=== PATIENT | female | born 2000 | race Hispanic/Latino ===

== ENCOUNTER 2019-12-28 23:03 | Emergency (ER) | payer SELFPAY ==
[2019-12-28 23:40] LABS: #Basophils 0.1 thou/uL (0.0-0.2); #Eosinphils 0.1 thou/uL (0.0-0.7); #Lymphocytes 2.3 thou/uL (1.20-3.40); #Monocytes 0.4 thou/uL (0.11-0.59); #Neutrophils 3.8 thou/uL (1.40-6.50); %Basophils 0.9 % (0.0-1.0); %Eosinophils 1.6 % (0.0-10.0); %Lymphocytes 34.4 % (21.0-51.0); %Monocytes 6.6 % (0.0-10.0); %Neutrophils 56.6 % (42.0-75.0); Hemoglobin 13.5 g/dL (12.0-16.0); Mean Corpuscular HGB CONC 36.3 g/dL (32.0-36.0); Mean Corpuscular Hemoglobin 32.1 pg (27.0-31.0); Mean Corpuscular Volume 88.6 fL (78.0-98.0); Platelet Count 235 thou/uL (130-400); RBC Distribution Width 11.4 % (11.5-14.5); Red Blood Cell (RBC) Count 4.22 mill/uL (4.20-5.40); White Blood Cell (WBC) Count 6.7 thou/uL (4.8-10.8)
[2019-12-29 00:04] LABS: ALT (SGPT) 12 U/L (8-55); AST (SGOT) 19 U/L (5-34); Albumin 3.9 g/dL (3.5-5.0); Alkaline Phosphatase 52 U/L (40-110); Anion Gap 11 mmol/L (10-20); BUN (Urea Nitrogen) 11 mg/dL (7.0-18.7); Bilirubin, Total 0.3 mg/dL (0.2-1.2); Calc. Creatinine Clearance 0 mL/min (70-130); Carbon Dioxide 26 mmol/L (22-29); Chloride 103 mmol/L (98-107); Estimated GFR-MDRD Greater than 90; Globulin 3.2 g/dL (2.4-3.5); Glucose 86 mg/dL (70-105); Potassium 3.7 mmol/L (3.5-5.1); Protein, Total 7.1 g/dL (6.0-8.3); Sodium 136 mmol/L (136-145)
[2019-12-29 00:27] LABS: Bilirubin Negative (Negative); Blood, Urine Negative (Negative); Clarity Clear (Clear); Glucose, Urine (Dipstick) Normal (Negative); Ketone, Urine 10 mg/dL (Negative); Leukocyte Negative Leu/uL (Negative); Nitrite Negative (Negative); Protein, Urine (Dipstick) Negative (Neg-Trace); Urobilinogen 3 mg/dL (Less than 2); pH, Urine 6.5 (5.0-9.0)
--- NOTE | 2019-12-29 07:58 | ULT ---
PRELIMINARY REPORT/[facility]/EMERGENCY AFTER HOURS PROCEDURE: EXAM: US Obstetrical, Complete <14 weeks CLINICAL HISTORY: Sharp midline pelvic pain, no vaginal bleeding, nausea TECHNIQUE: Transvaginal and transabdominal imaging of the maternal pelvis and a <14 week gestation with image do cumentation. COMPARISON: None provided. FINDINGS: GESTATION: An intrauterine gestation demonstrates a CRL of 2.1 mm corresponding to 5 weeks 5 days and demonstrat ing a heartbeat of 103 bpm. The estimated due date is 08/23/2020. A small qasim-gestational hem orrhage is noted UTERUS: Unremarkable. No myometrial mass. Measures 8.7 x 4.8 x 5.8 cm CERVIX: Closed. Unremarkable. OVARIES: Unremarkable. No mass. The LEFT side measures 3.1 x 1.3 x 2.0 cm and the RIGHT side measures 2.6 x 2 .9 x 1.9 cm demonstrating a 1.7 x 1.4 x 1.6 cm cyst FREE FLUID: Mild posterior cul-de-sac free fluid. IMPRESSION: Single viable intrauterine . Small qasim-gestational hemorrhage. ELECTRONICALLY SIGNED BY: Donal Gunderson MD Dec 29, 2019 12:22:26 AM [employer] This report is intended for review by the ordering physician only, in accordance of law. If you recei ve this report in error, please call [facility] at [phone]. FINAL REPORT EMERGENCY AFTER HOURS PELVIC ULTRASOUND: Transabdominal and endovaginal ultrasound of pelvis performed. There is a single, viable intrauterine . Gestational sac with yolk sac and pole identified. [place]-rump length indicates 5 we ek and 5 day gestational age. There is evidence of a small subchorionic hemorrhage. This was noted on the preliminary report. There is a right ovarian cyst. I am in agreement with the preliminary report issued by [facility]. POS: [facility]
== END 2019-12-29 00:35 | disposition home or self-care (01) ==
LOC: ERS 23:03 → EDBD 23:03 → ERS 12-29 00:35
DX: O20.0 Threatened abortion (principal); Z3A.01 Less than 8 weeks gestation of pregnancy
CPT/HCPCS: 36415; 76856; 80053; 81003; 84702; 85025; 86900; 86901